=== PATIENT | male | born 1990 | race Caucasian/White ===

== ENCOUNTER 2017-01-09 08:40 | Outpatient (CLI) | payer OTHER ==
[~2017-01-09 08:40] MED LIST: GADOBUTROL 7.5 MMOL/7.5 ML VIAL ONE
[2017-01-09] MEDS ORDERED: GADOBUTROL 7.5 MMOL/7.5 ML VIAL ONE (09:01)
[2017-01-09] MEDS ORDERED: GADOBUTROL 7.5 MMOL/7.5 ML VIAL IVP ONE (09:48)
--- NOTE | 2017-01-09 16:38 | MRI Report ---
EXAM: MRI BRAIN AND INTERNAL AUDITORY CANAL (IAC) EXAM DATE: 01/09/2017 10:06 AM. CLINICAL HISTORY: 5 year history of asymmetric hearing loss, right side, concerning for acoustic neur joan COMPARISON: None. TECHNIQUE: Multiplanar, multisequence T1-weighted and fluid-sensitive MRI sequences of the brain and IACs were performed. Other: None. IV Contrast: Without and with. 6.5 mL Gadavist FINDINGS: Brain Volume: Normal for age. Parenchyma/Dura: No acute parenchymal hemorrhage, mass, or midline shift. Scattered T2/FLAIR hyperint ense periventricular, subcortical, deep white matter lesions are discernible hemispheres bilaterally (for example series 701 image 16). No areas of restricted diffusion to suggest acute infarct. No defi nite abnormal areas of susceptibility artifact. No abnormal post-contrast enhancement. Pituitary: Normal. Internal Auditory Canals (IACs): Normal. No cranial nerve lesion or inflammatory process identified. The cerebellopontine angles bilaterally, the internal auditory canals bilaterally, the cochleas bilat erally, and the vestibular apparatuses bilaterally are unremarkable. No associated abnormal enhanceme nt. Ventricles/Cisterns: No definite abnormal extra-axial fluid collection/mass seen. Ventricles and sulc i appear age appropriate. Cisterns are patent. Fluid is seen within Meckel's caves. Sinuses: Visualized paranasal sinuses appear clear. Mastoid air cells and middle ear cavities appear clear. Orbits: Normal. Vasculature: Visualized major intracranial flow voids appear maintained. Dural sinuses appear patent. Bones: Normal. Other: None. IMPRESSION: 1. No MRI evidence of retrocochlear pathology. The cerebellopontine angles bilaterally, the internal auditory canals bilaterally, the cochleas bilaterally, and the vestibular apparatuses bilaterally are unremarkable. No associated abnormal enhancement. 2. Scattered white matter T2/FLAIR hyperintensities, nonspecific, and can be seen with the entire [place] of white matter conditions, including migraine headaches, as sequela of chronic microangiopathy, a nd demyelinating conditions. 3. No evidence of acute or subacute infarct, intracranial hemorrhage, mass, midline shift, hydrocepha chet, or abnormal intracranial enhancement. [facility] Referring Provider Line: [phone] SITE ID: [id number]
== END 2017-01-09 08:41 | disposition home or self-care (01) ==
LOC: DI 08:40
PROVIDERS: ATTEND Registered Nurse Diabetes Educator
DX: H91.8X1 Other specified hearing loss, right ear (principal)
CPT/HCPCS: 70553; A9585